=== PATIENT | female | born 1990 | race Caucasian/White ===

== ENCOUNTER → 2016-10-11 | Day surgery (SDC) | payer BC, SELFPAY ==
[~2016-10-11] VITALS: Ht 162.6 cm; Wt 64.8 kg
[~2016-10-11] MED LIST: DICYCLOMINE HCL20 MG PO; PROTONIX40 MG PO
== END | disposition disaster alternative care site (69) ==
LOC: GPOC 10-10 17:00 → GEND 08:01 → GPOC 17:00
PROC: 0DB68ZX Excision of Stomach, Via Natural or Artificial Opening Endoscopic, Diagnostic (ICD-10-PCS; principal; 2016-10-11)
DX: K29.70 Gastritis, unspecified, without bleeding (principal); K31.89 Other diseases of stomach and duodenum; Z88.2 Allergy status to sulfonamides; Z79.899 Other long term (current) drug therapy; Z88.0 Allergy status to penicillin
CPT/HCPCS: J2001; J7030

== ENCOUNTER → 2016-10-12 | Outpatient (CLI) | payer BC, SELFPAY | END | disposition disaster alternative care site (69) | LOC: GRAD 10:21 | DX: R10.9 Unspecified abdominal pain (principal) ==